=== PATIENT | male | born 1950 | race Two or more races ===

== ENCOUNTER 2020-09-05 18:13 | Emergency (ER) | payer OTHER ==
[~2020-09-05] VITALS: Ht 170.2 cm; Wt 111.1 kg
[2020-09-05 18:28] VITALS: BP 141/71
== END 2020-09-05 18:29 | disposition left against medical advice (07) ==
LOC: ER 18:13
DX: H92.01 Otalgia, right ear (principal); Z53.21 Procedure and treatment not carried out due to patient leaving prior to being seen by health care provider